=== PATIENT | female | born 1985 | race Hispanic/Latino ===

== ENCOUNTER → 2018-12-15 | Day surgery (SDC) | payer BC ==
[~2018-12-15] MED LIST: FENTANYL CITRATE/PF 100MCG/2 ML INJ ONE; LIDOCAINE HCL 2% LOCAL INJ 5 ML SDV VIAL INJ ONE; METFORMIN HCL500 MG PO; MIDAZOLAM HCL 2 MG/2 ML VIAL ONE; PROPOFOL IV EMULSION 10 MG/ML 50 ML VIAL ONE; SIMVASTATIN20 MG PO; ZYRTEC10 M3
[2018-12-15 07:46] VITALS: BP 142/96
== END | disposition home or self-care (01) ==
LOC: OR 05:18
PROVIDERS: ATTEND Internal Medicine Gastroenterology
DX: K29.50 Unspecified chronic gastritis without bleeding (principal); K21.0 Gastro-esophageal reflux disease with esophagitis; K44.9 Diaphragmatic hernia without obstruction or gangrene; Z71.3 Dietary counseling and surveillance; G47.33 Obstructive sleep apnea (adult) (pediatric); J30.2 Other seasonal allergic rhinitis; I10 Essential (primary) hypertension; E11.9 Type 2 diabetes mellitus without complications; E66.01 Morbid (severe) obesity due to excess calories; Z79.84 Long term (current) use of oral hypoglycemic drugs; Z68.42 Body mass index [BMI] 45.0-49.9, adult
CPT/HCPCS: 36415; 43239; 81025; 82948; 93005; J2001; J2250; J2704

== ENCOUNTER 2023-01-12 21:11 | Emergency (ER) | payer BC, OTHER ==
[~2023-01-12] VITALS: Ht 149.9 cm; Wt 53.1 kg
[~2023-01-12 21:11] MED LIST changes: -FENTANYL CITRATE/PF 100MCG/2 ML INJ ONE; -LIDOCAINE HCL 2% LOCAL INJ 5 ML SDV VIAL INJ ONE; -MIDAZOLAM HCL 2 MG/2 ML VIAL ONE; -PROPOFOL IV EMULSION 10 MG/ML 50 ML VIAL ONE
[2023-01-12 21:28] VITALS: O2SAT 100
[2023-01-12] MEDS ORDERED: ONDANSETRON HCL INJ 2MG/ML 2ML 2 MG/ML VIAL IV STA (21:40)
[2023-01-12] MEDS ORDERED: KETOROLAC TROMETHAMINE 30 MG/ML VIAL IV STA (21:40)
[2023-01-12 21:48] LABS: BASOPHILS % 0.6 % (0.0-1.0); EOSINOPHILS # (AUTO) 0.2 (0.0-0.4); EOSINOPHILS % 2.8 % (0.0-6.0); HEMATOCRIT 36.6 % (34.2-44.1); LYMPHOCYTES # (AUTO) 1.1 (1.0-3.2); LYMPHOCYTES % 16.3 % (18.0-39.1); MEAN CORPUSCULAR HEMOGLOBIN 30.7 pg (28-32); MEAN CORPUSCULAR HGB CONC 32.8 g/dL (31-35); MEAN CORPUSCULAR VOLUME 93.6 fL (81-99); MONOCYTES # (AUTO) 0.3 (0.2-0.8); MONOCYTES % 4.7 % (4.4-11.3); NEUTROPHILS # (AUTO) 5.2 (2.1-6.9); NEUTROPHILS % 75.3 % (38.7-80.0); PLATELET COUNT 270 x10e3/uL (140-360); RED BLOOD COUNT 3.91 x10e6/uL (3.6-5.1); RED CELL DISTRIBUTION WIDTH 12.1 % (11.7-14.4)
[2023-01-12 22:01] LABS: ALANINE AMINOTRANSFERASE 30 IU/L (0-55); ALBUMIN/GLOBULIN RATIO 1.1 (0.8-2.0); ALKALINE PHOSPHATASE 57 IU/L (40-150); ANION GAP 13.9 mmol/L (8-16); BLOOD UREA NITROGEN 24 mg/dL (7-26); BUN/CREATININE RATIO 30 (6-25); CARBON DIOXIDE 24 mmol/L (22-29); CHLORIDE 106 mmol/L (98-107); CREATINE KINASE 35 IU/L (29-168); CREATININE, SERUM 0.79 mg/dL (0.57-1.11); GLUCOSE 141 mg/dL (74-118); POTASSIUM 3.9 mmol/L (3.5-5.1); SODIUM 140 mmol/L (136-145)
[2023-01-12 22:08] LABS: LIPASE 21 U/L (8-78)
[2023-01-12] MEDS ORDERED: IOPAMIDOL 370 MG/ML 100 ML INFUS..BTL INJ ONE (23:02)
[2023-01-12 23:09] LABS: CLARITY,URINE CLEAR (CLEAR); COLOR,URINE AMBER (YELLOW); KETONES,URINE TRACE (NEGATIVE); LEUKOCYTE ESTERASE ,URINE NEGATIVE (NEGATIVE); NITRITE,URINE NEGATIVE (NEGATIVE); PROTEIN,URINE DIPSTICK 1+ (NEGATIVE); URINE UROBILINOGEN 1 mg/dL (0.2 - 1)
[2023-01-12 23:13] LABS: AMORPHOUS SEDIMENT,URINE FEW (FEW); BACTERIA,URINE RARE /HPF; EPITHELIAL CELLS,URINE MODERATE /LPF; RBC,URINE 0-5 /HPF (0-5); WBC,URINE (MAN) 0-5 /HPF (0-5)
[2023-01-13] MEDS ORDERED: ONDANSETRON ODT4 MG PO (01:22)
[2023-01-13] MEDS ORDERED: KETOROLAC TROME10 MG PO (01:22)
[2023-01-13] MEDS ORDERED: DICYCLOMINE HCL20 MG PO (01:22)
[2023-01-13] MEDS ORDERED: PANTOPRAZOLE SO40 MG PO (01:22)
== END 2023-01-13 01:17 | disposition home or self-care (01) ==
LOC: ER 21:54
DX: R10.32 Left lower quadrant pain (principal); K80.20 Calculus of gallbladder without cholecystitis without obstruction; R10.31 Right lower quadrant pain; R11.2 Nausea with vomiting, unspecified; R19.7 Diarrhea, unspecified; Z98.84 Bariatric surgery status
CPT/HCPCS: 36415; 74177; 76705; 80053; 81001; 82550; 82553; 83690; 84484; 84702; 85025; 93005; 99284; C9113; J1885; J2405; Q9967